=== PATIENT | male | born 1940 | race Caucasian/White ===

== ENCOUNTER 2024-03-20 20:35 | Observation (INO) ==
[2024-03-20] MEDS ORDERED: Morphine ORAL CONCENTRATE 5 MG/0.25 ML ORAL.SYRIN SL PRN (21:04)
[2024-03-20] MEDS ORDERED: Senna TAB 8.6 mg TAB PO PRN (21:04)
[2024-03-20] MEDS ORDERED: Ondansetron ODT 4 mg TAB 4 MG TAB SL PRN (21:04)
[2024-03-21 09:02] VITALS: BP 135/84
[2024-03-21] MEDS: Polyethylene Glycol 3350 17 GM PACKET PO SCH (10:10)
[2024-03-21 16:06] LABS: ABS Eosinophils 0.1 10^3/uL (0.0-0.5); ABS Lymphocytes 1.5 10^3/uL (1.0-4.8); ABS Monocytes 0.5 10^3/uL (0.0-1.1); ABS Neutrophils 8.9 10^3/uL (1.5-7.6); ABS Nucleated RBC 0.01 10^3/ul; Eosinophil % 0.9 %; Hematocrit 51.7 % (38-53); Hemoglobin 17.4 g/dL (13.2-16.3); Lymphocyte % 13.4 %; Mean Corpuscular Hemoglobin 30.9 pg (27-33); Mean Corpuscular Hgb Conc 33.7 g/dL (31-36); Mean Corpuscular Volume 91.5 fL (80-97); Mean Platelet Volume 7.6 fL (7.5-11.2); Nucleated Red Blood Cells % 0.1 %/100WBC (0.0-0.8); Platelet Count 246 10^3/uL (150-450); Red Blood Count 5.65 10^6/uL (4.06-5.63); Red Cell Distribution Width 14.8 % (12-17)
[2024-03-21 16:51] LABS: Albumin 4.3 g/dL (3.2-5.2); Calcium 9.4 mg/dL (8.6-10.3); Creatinine, Serum 1.72 mg/dL (0.67-1.17); Globulin 2.2 g/dL (2-4); Potassium 4.9 mmol/L (3.5-5.0); Total Bilirubin 0.7 mg/dL (0.2-1.0); Total Protein 6.5 g/dL (6.4-8.9)
== END 2024-03-21 16:15 | disposition home or self-care (01) ==
LOC: ED 20:35 → SUATTDRO 21:02 → INTOOBSV 21:02 → EDHOLD 21:02 → MEDTELE 03-21 07:47
PROVIDERS: ADMIT Internal Medicine; ATTEND Internal Medicine